=== PATIENT | female | born 1990 | race Caucasian/White ===

== ENCOUNTER → 2018-01-11 | Day surgery (SDC) | payer OTHER ==
[~2018-01-11] MED LIST: CEFDINIR300 MG PO; DICYCLOMINE HCL20 MG PO; FENTANYL CITRATE/PF 100MCG/2 ML INJ ONE; HYOSCYAMINE SULFATE 0.5 MG/ML AMP ONE; MIDAZOLAM HCL 2 MG/2 ML VIAL ONE; OMEPRAZOLE40 MG PO; PROPOFOL IV EMULSION 10 MG/ML 50 ML VIAL ONE; ZANTAC150 MG PO; ZOFRAN ODT4 MG PO
--- NOTE | 2018-01-11 14:19 | Operative Report ---
DATE OF PROCEDURE: January 11, 2018 REFERRING PHYSICIAN: Dr. Esha Serrano PROCEDURES PERFORMED 1. Esophagogastroduodenoscopy with esophageal dilatation and pyloric channel stricture dilatation and biopsies. 2. Colonoscopy with polypectomy and biopsies. INDICATIONS FOR EGD: Dysphagia to solids, nausea and vomiting. INDICATIONS FOR COLONOSCOPY: Colorectal cancer screening, personal history of colon polyps, lower abdominal pain. MEDICATION: Patient was done under MAC. Please see anesthesiologist's note. PROCEDURE: With the patient in the left lateral decubitus position, the flexible fiberoptic Olympus gastroscope was introduced into the esophagus under direct visualization without any difficulty. There was some patchy erythema noted in the distal esophagus. A mild stricture was noted at the GE junction that was dilated to size 52-Maori Kaiser. The scope was then advanced with ease into the stomach and mucosa overlying the antrum and the body revealed some diffuse erythema and low-grade to moderate edema, and biopsies were obtained and sent to stain for H. pylori. Several hyperplastic appearing polyps were noted in the body and some were partially excised with cold biopsy forceps. Pylorus was stenotic and it was dilated to size 20 mm per TTS balloon dilators. The scope was then advanced with ease into the duodenum all the way to the 2nd portion. The scope was then withdrawn slowly. Mucosa overlying the proximal 2nd portion and the duodenal bulb appeared to be within normal limits. The scope was then withdrawn back into the stomach and retroflexed. The mucosa overlying the fundus and the cardia appeared to be within normal limits. The scope was then straightened out. The scope was subsequently withdrawn. Patient tolerated the procedure well. IMPRESSION 1. Distal esophagitis, mild. 2. Esophageal stricture at gastroesophageal junction dilated to size 52-Maori Kaiser. 3. Gastritis, biopsied. Biopsies sent to stain for Helicobacter pylori. 4. Gastric polyps, some partially excised with cold biopsy forceps. 5. Gastric nodule, antrum, biopsied. 6. Pyloric channel stricture dilated to size 20 mm per TTS balloon dilators. PLAN: Follow up histology. Increase Protonix to 40 mg 1 p.o. a.c. b.i.d. Patient was then turned around. After adequate lubrication of the anal canal, a flexible fiberoptic Olympus colonoscope was inserted into the rectum with ease and advanced all the way to the cecum. It was then withdrawn slowly. Mucosa overlying the cecum, ascending and the transverse, as well as the descending appeared to be within normal limits. Three polyps were hot biopsied from the sigmoid colon. There was some patchy intense erythema and low-grade to moderate edema noted in the sigmoid colon, and biopsies were obtained. One polyp was hot biopsied from the rectum. The scope was then retroflexed into the distal rectum and small internal hemorrhoids were noted, none of which was actively bleeding. The scope was then straightened out. It was subsequently withdrawn. Patient tolerated the procedure well. IMPRESSION 1. Sigmoid colon polyps times 3, hot biopsied. 2. Mild patchy segmental colitis, sigmoid colon. 3. Rectal polyp, hot biopsied. 4. Internal hemorrhoids, none actively bleeding. PLAN: Follow up histology. Initiate VSL #3 DS 1 p.o. b.i.d. Patient might benefit from a followup colonoscopy in 3 years. Job#: [id number] RI cc:ESHA SERRANO MD
== END | disposition home or self-care (01) ==
LOC: OR 09:22
PROVIDERS: ATTEND Internal Medicine Gastroenterology
DX: K59.00 Constipation, unspecified (principal); K31.7 Polyp of stomach and duodenum; K63.5 Polyp of colon; K62.1 Rectal polyp; K29.70 Gastritis, unspecified, without bleeding; K22.2 Esophageal obstruction; K31.1 Adult hypertrophic pyloric stenosis; K20.9 Esophagitis, unspecified; K31.89 Other diseases of stomach and duodenum; K50.10 Crohn's disease of large intestine without complications; K64.8 Other hemorrhoids; I47.1 Supraventricular tachycardia; Z88.0 Allergy status to penicillin; Z68.27 Body mass index [BMI] 27.0-27.9, adult
CPT/HCPCS: 43239; 43245; 43450; 45384; 81025; C1726; J1980; J2250; 43235; 45378; 45380; 45385

== ENCOUNTER 2018-01-12 13:59 | Emergency (ER) | payer OTHER ==
[~2018-01-12] VITALS: Ht 154.9 cm; Wt 71.7 kg
[~2018-01-12 13:59] MED LIST changes: -FENTANYL CITRATE/PF 100MCG/2 ML INJ ONE; -HYOSCYAMINE SULFATE 0.5 MG/ML AMP ONE; -MIDAZOLAM HCL 2 MG/2 ML VIAL ONE; -PROPOFOL IV EMULSION 10 MG/ML 50 ML VIAL ONE
[2018-01-12] MEDS ORDERED: ONDANSETRON HCL 4 MG ORAL DISINTEGRATING TAB PO ONE (15:00)
[2018-01-12] MEDS ORDERED: MORPHINE SULFATE 4 MG/ML SYR IV STA (15:00)
[2018-01-12] MEDS ORDERED: SODIUM CHLORIDE 0.9% 1000ML 1,000 ML IV STA (15:00)
[2018-01-12 15:13] LABS: BASOPHILS % 0.4 % (0.0-1.0); EOSINOPHILS # (AUTO) 0.1 (0.0-0.4); HEMOGLOBIN 13.7 g/dL (12.0-16.0); LYMPHOCYTES # (AUTO) 1.8 (1.0-3.2); LYMPHOCYTES % 22.7 % (18.0-39.1); MEAN CORPUSCULAR HEMOGLOBIN 31.8 pg (28-32); MEAN CORPUSCULAR HGB CONC 35.1 g/dL (31-35); MEAN CORPUSCULAR VOLUME 90.5 fL (81-99); MONOCYTES # (AUTO) 0.6 (0.2-0.8); MONOCYTES % 7.3 % (4.4-11.3); NEUTROPHILS # (AUTO) 5.4 (2.1-6.9); NEUTROPHILS % 68.2 % (38.7-80.0); PLATELET COUNT 349 x10e3/uL (140-360); RED BLOOD COUNT 4.31 x10e6/uL (3.6-5.1); RED CELL DISTRIBUTION WIDTH 11.7 % (11.7-14.4)
[2018-01-12] MEDS ORDERED: MORPHINE SULFATE 2 MG/ML SYR IV NR (15:15)
[2018-01-12 15:28] LABS: ALANINE AMINOTRANSFERASE 18 IU/L (0-55); ALBUMIN 3.7 g/dL (3.5-5.0); ALKALINE PHOSPHATASE 78 IU/L (40-150); AMYLASE 83 U/L (25-125); ANION GAP 11.5 mmol/L (8-16); BLOOD UREA NITROGEN 11 mg/dL (7-26); BUN/CREATININE RATIO 14 (6-25); CALCIUM 9.4 mg/dL (8.4-10.2); CARBON DIOXIDE 29 mmol/L (22-29); CHLORIDE 104 mmol/L (98-107); CREATININE, SERUM 0.77 mg/dL (0.57-1.11); EST GLOMERULAR FILTRATION RATE > 60 ML/MIN (60-); GLUCOSE 89 mg/dL (74-118); LIPASE 31 U/L (8-78); POTASSIUM 3.5 mmol/L (3.5-5.1); SODIUM 141 mmol/L (136-145)
--- NOTE | 2018-01-12 16:56 | Diagnostic Imaging Report ---
PROCEDURE: CT ABDOMEN AND PELVIS WITH CONTRAST TECHNIQUE: The abdomen and pelvis were scanned utilizing a multidetector helical scanner from the diaphragm to the lesser trochanter after the IV administration of 100 cc of Isovue 370 and the oral administration of water. Coronal and sagittal multiplanar reformations were obtained. COMPARISON: None. INDICATIONS: ABDOMINAL PAIN LEFT UPPER QUADRANT. POST COLONOSCOPY FINDINGS: LOWER THORAX: Unremarkable HEPATOBILIARY: No focal hepatic lesions. No biliary ductal dilatation. Cholecystectomy clips. SPLEEN: No splenomegaly. PANCREAS: No focal masses or ductal dilatation. ADRENALS: No adrenal nodules. KIDNEYS/URETERS: No hydronephrosis, stones, or solid mass lesions. PELVIC ORGANS/BLADDER: Bladder and uterus are unremarkable. 4.4 x 4.3 x 3.7 cm simple right ovarian follicular cysts. PERITONEUM / RETROPERITONEUM: No free air or fluid. LYMPH NODES: No lymphadenopathy. VESSELS: Unremarkable. GI TRACT: No bowel dilation or evidence of obstruction. No pericolonic inflammatory changes. Appendix is identified, and normal in caliber. Stomach is unremarkable. BONES AND SOFT TISSUES: Nonaggressive lytic lesion. This is unremarkable. IMPRESSION: 1. no acute abdominopelvic abnormalities. No bowel dilation or evidence of obstruction. No pneumoperitoneum to suggest perforation. Elias Krsihnan M.D. Dictated by: Elias Krishnan M.D. on 01/12/2018 at 16:59 Electronically approved by: Elias Krishnan M.D. on 01/12/2018 at 16:59
[2018-01-12 17:09] LABS: BILIRUBIN,URINE NEGATIVE (NEGATIVE); CLARITY,URINE CLOUDY (CLEAR); COLOR,URINE RED (YELLOW); KETONES,URINE NEGATIVE (NEGATIVE); LEUKOCYTE ESTERASE ,URINE NEGATIVE (NEGATIVE); NITRITE,URINE NEGATIVE (NEGATIVE); PROTEIN,URINE DIPSTICK NEGATIVE (NEGATIVE); URINE UROBILINOGEN 0.2 mg/dL (0.2 - 1)
[2018-01-12 17:23] LABS: RBC,URINE >50 /HPF (0-5); WBC,URINE (MAN) 0-5 /HPF (0-5)
[2018-01-12] MEDS ORDERED: SODIUM CHLORIDE 0.9% 50ML 50 ML ONE (22:38)
[2018-01-12] MEDS ORDERED: IOPAMIDOL 370 MG/ML 200 ML INFUS..BTL INJ ONE (22:38)
== END 2018-01-12 18:34 | disposition home or self-care (01) ==
LOC: ER 13:59
DX: R10.13 Epigastric pain (principal); R10.33 Periumbilical pain; R11.0 Nausea; J45.909 Unspecified asthma, uncomplicated; F41.9 Anxiety disorder, unspecified; K21.9 Gastro-esophageal reflux disease without esophagitis
CPT/HCPCS: 36415; 74177; 80053; 81001; 82150; 83690; 84702; 85025; 87086; 99284; J2270; J7030; Q9967